=== PATIENT | male | born 1935 | race Asian ===

== ENCOUNTER 2020-07-06 15:55 | Outpatient (CLI) | payer MEDICARE, OTHER | END 2020-07-06 15:56 | disposition critical access hospital (66) | LOC: EMS 15:55 | PROVIDERS: ATTEND Surgery | DX: R41.82 Altered mental status, unspecified (principal); R53.1 Weakness | CPT/HCPCS: A0425; A0427 ==

== ENCOUNTER 2020-07-06 16:28 | Emergency (ER) | payer MEDICARE, OTHER ==
[2020-07-06] MEDS ORDERED: IOVERSOL 320 100 ML VIAL IVP ONE ×3 (16:29→17:35)
--- NOTE | 2020-07-06 16:34 | ED Physician Documentation ---
PD HPI FOCAL NEURO - Stated complaint Stated Complaint: POSS STROKE - History obtained from History obtained from: Patient, Family, EMS - History of Present Illness Timing - onset: Enter time (7pm), Last night Timing - duration: Days (1) Timing - details: Abrupt onset, Still present Severity of deficit: Severe Weakness: Arm, Right Numbness: No: Face, Arm Associated symptoms: No: Headache, Nausea / vomiting, Seizure, Syncope, Fall, Head injury, Chest pain, Neck pain, Back pain, Fever Contributing factors: negative: Anticoagulated Baseline status: positive: A&OX3, ambulatory, indep Similar symptoms before: Has not had sx before Recently seen: Not recently seen - Additional information Additional information: Previously well 84-year-old male was last known normal at 7 PM last night and his noted he at that time had some difficulty with his speech and confusion. This persisted this morning when the patient awoke at 10 AM. He did not talk much as usual but went through his morning routine dressed himself ect. She noted he was more confused this afternoon and she has called the ambulance. She has noticed his breathing being funny today and she thinks he has not had much to drink for the past 2 days. She does recall that he was his usual talkative self 3 days ago when they were travelling. He has some trouble with breathing on a usual base but this she has not experienced. He seems to be gasping for breath. The patient is not able to cooperate with exam or history. He is using all ext and he was walking without trouble today. Review of Systems Unable to obtain: AMS, Confused, Other PD PAST MEDICAL HISTORY - Present Medications Home Medications: Ambulatory Orders Medication Instructions Recorded Confirmed Fluticasone/Salmeterol [Advair 07/06/20 250-50 Diskus] Tiotropium [place] [Spiriva] 07/06/20 - Allergies Allergies/Adverse Reactions: Allergies Allergy/AdvReac Type Severity Reaction Status Date / Time iodine Allergy Unknown Verified 07/06/20 16:56 PD ED PE NORMAL - Vitals Vital signs reviewed: Yes (hypertensive ) - General General: No acute distress, Well developed/nourished, Other (gasping for breath without audible wheeze. Confused and not responding appropriately) - HEENT HEENT: Atraumatic, PERRL, EOMI - Neck Neck: Supple, no meningeal sign, No bony TTP - Cardiac Cardiac: RRR, No murmur - Respiratory Respiratory: Clear bilaterally, Other (gasping for breath) - Abdomen Abdomen: Soft, Other (pain is elicited to the left side with palpation without garding. ) - Back Back: No CVA TTP, No spinal TTP - Derm Derm: Normal color, Warm and dry, No rash - Extremities Extremities: No deformity, No edema, No calf tenderness / cord - Neuro Eye Opening: Spontaneous Motor: Localizes to Pain Verbal: Inappropriate GCS Score: 12 - Psych Psych: Normal affect, Other (mood is happy with laughing ) NIHSS - Time Time: 17:20 - Level of Consciousness Level of consciousness: (0) Alert, Keenly responsive LOC Questions: (2) Answers neither correct LOC Commands: (2)Performs none - Gaze Best Gaze: (0) Normal - Visual Visual: (0) No loss - Facial Palsy Facial Palsy: (0) Normal, symmetrical movement - Motor Arms (both separate) Motor Arm (right): (0) No drift Motor Arm (left): (0) No drift - Motor Legs (both separate) Motor Leg (right): (0) No drift Motor Leg (left): (0) No drift - Limb Ataxia Limb Ataxia: (0) Absent - Sensory Sensory: (0) Normal - Best Language Best Language: (2) Severe aphasia - Dysarthria Dysarthria: (1) Sfrt-ik-avctrehv dysarthria - Extinction and Inattention (formally neg Extinction and inattention: (2) Profound jay-inattention or extinction to more than one modality - Total Score/Results Total Score/Result: 9 Results - Vitals Vitals: Vital Signs - 24 hr 07/06/20 07/06/20 07/06/20 16:48 17:02 17:04 Temperature 36.6 C 36.6 C Heart Rate 76 76 Respiratory 33 H 22 Rate Blood Pressure 161/80 H 161/80 H O2 Saturation 100 100 07/06/20 07/06/20 07/06/20 17:39 18:00 18:37 Temperature Heart Rate 70 78 74 Respiratory 27 H 24 23 Rate Blood Pressure 194/90 H 190/80 H 174/129 H O2 Saturation 100 100 98 07/06/20 07/06/20 07/06/20 19:30 20:21 21:20 Temperature Heart Rate 81 86 95 Respiratory 20 22 23 Rate Blood Pressure 186/117 H 193/75 H 157/90 H O2 Saturation 100 99 100 07/06/20 07/06/20 07/06/20 21:30 22:10 23:14 Temperature Heart Rate 84 84 85 Respiratory 17 17 20 Rate Blood Pressure 163/78 H 153/77 H 154/65 H O2 Saturation 97 97 95 07/06/20 23:54 Temperature 36.9 C Heart Rate 82 Respiratory 14 Rate Blood Pressure 146/57 H O2 Saturation 92 Oxygen O2 Source Room air - EKG (time done) 1653 Rate: Rate (enter#) (75) Intervals: RBBB Compare to prior EKG: Old EKG unavailable Computer interpretation: Agree with computer - Labs Labs: Laboratory Tests 07/06/20 07/06/20 07/06/20 16:50 16:50 16:50 WBC 7.9 RBC 5.01 Hgb 14.9 Hct 45.1 MCV 90.0 MCH 29.7 MCHC 33.0 RDW 12.7 Plt Count 205 MPV 9.9 Neut # (Auto) 4.9 Lymph # (Auto) 2.0 [place] # (Auto) 0.8 Eos # (Auto) 0.1 Baso # (Auto) 0.0 Absolute Nucleated RBC 0.00 Nucleated RBC % 0.0 PT 13.3 H INR 1.2 Sodium 137 Potassium 3.6 Chloride 104 Carbon Dioxide 22 Anion Gap 11.0 BUN 18 Creatinine 0.9 Estimated GFR (MDRD) 80 L Glucose 102 H Calcium 9.0 Total Bilirubin 0.9 AST 21 ALT 26 Alkaline Phosphatase 87 Total Protein 6.9 Albumin 3.8 Globulin 3.1 Albumin/Globulin Ratio 1.2 Lipase 26 Urine Color Urine Clarity Urine pH Ur Specific [place] Urine Protein Urine Glucose (UA) Urine Ketones Urine Occult Blood Urine Nitrite Urine Bilirubin Urine Urobilinogen Ur Leukocyte Esterase Ur Microscopic Review Urine Culture Comments 07/06/20 18:52 WBC RBC Hgb Hct MCV MCH MCHC RDW Plt Count MPV Neut # (Auto) Lymph # (Auto) [place] # (Auto) Eos # (Auto) Baso # (Auto) Absolute Nucleated RBC Nucleated RBC % PT INR Sodium Potassium Chloride Carbon Dioxide Anion Gap BUN Creatinine Estimated GFR (MDRD) Glucose Calcium Total Bilirubin AST ALT Alkaline Phosphatase Total Protein Albumin Globulin Albumin/Globulin Ratio Lipase Urine Color YELLOW Urine Clarity CLEAR Urine pH 8.0 H Ur Specific [place] 1.010 Urine Protein NEGATIVE Urine Glucose (UA) NEGATIVE Urine Ketones 15 H Urine Occult Blood TRACE-INTA Urine Nitrite NEGATIVE Urine Bilirubin NEGATIVE Urine Urobilinogen 0.2 (NORMAL) Ur Leukocyte Esterase NEGATIVE Ur Microscopic Review NOT INDICATED Urine Culture Comments NOT INDICATED - Rads (name of study) CTA head Radiology: Prelim report reviewed (Impression: No significant intracranial abnormality is seen. No intracranial hemorrhage is seen. No hemodynamically significant stenosis is detected. Would be helpful for clinical management decision-making, please consider a dedicated brain MRI for further evaluation (assuming there is no contra), EMP read indepedently, See rad report CTA neck Radiology: Prelim report reviewed (Impression there is high-grade stenosis involving the left proximal internal carotid artery, approximately 90% there is approximately 70% stenosis seen involving the right proximal internal carotid artery. Generalized atherosclerotic calcification and irregularity can be seen involving intracranial), EMP read indepedently (internal carotid arteries with 40 to 50% narrowing seen on each side. There is focal atherosclerotic calcifica tion seen involving the right V4 segment with approximately 40% narrowing.), See rad report CT ab/pel w Radiology: Prelim report reviewed (Impression: 1. No evidence of acute abdominal process. Aortic atherosclerosis. Lumbar degenerative change with severe canal stenosis at L4-L5 mild chronic T12 compression. Small hiatal hernia. Left inguinal hernia containing fat.), EMP read indepedently, See rad report chest Radiology: Prelim report reviewed (Impression: No evidence of acute pulmonary process.), EMP read indepedently, See rad report Procedures - IVC sono (time) 1720 Bedside IVC sono: IVC measures (cm) (1.14), IVC collapsed c insp (cm) (com plete), Dehydration (est 1+ liter deficit) PD MEDICAL DECISION MAKING - ED course Complexity details: reviewed results, re-evaluated patient, considered differential, d/w patient ED course: 84 y/o male with acute aphasia and confusion is not able to cooperate with history or exam. His presentation is concerning for stroke and his last normal was yesterday. The obvious part of the stroke is the aphasia. There is not obvious unilateral weakness or incoordination. He is not able to cooperate with exam for details but is outside the window for aggressive measures. We were able to obtain CTA of the head and neck but not the MRI as his breathing was a limiting factor with motion artifact. Chest x-ray is without evidence of acute infiltrate or reason for the patient's abnormal breathing. I suspect his breathing may be a central process. During examination the patient did indicate pain in the left side of his abdomen and a CTA of the abdomen pelvis is obtained without findings for acute pain. CTA of the carotid arteries shows 90% occlusion on the right 70% occlusion on the left. The patient is found to be dehydrated on interrogation the inferior vena cava and intravenous saline is begun. I discussed with the patient's potential treatment of carotid artery stenosis requiring carotid endarterectomy and we discussed whether the patient would want to have this done. I did indicate to the that this would not change his difficulty with speech or his difficulty with breathing but might prevent a future stroke. She feels that he might not want to do this but she would like the opinion of the surgeon. The vascular surgeon Dr. Robin at [facility] in [place] is consulted in the case and indicates that it would be a reasonable thing for this patient to have an endarterectomy done and they do not have beds at [facility]. He recommends transfer the patient tomorrow when a bed becomes available and they would perform further imaging consult neurology and potentially operate. Dr. Palmer is consulted in the case and requests that we call vascular surgery. Dr. Barragan is consulted in the case after contacting vascular surgery with the plan that we would admit the patient to the hospital here to await the bed to become available tomorrow. He requested we call another vascular surgeon at [facility]. At shift change care of the patient is turned over to Dr. Christianson Departure - Departure Disposition: 02 Transfer Acute Care Hosp Clinical Impression: Dehydration Cerebrovascular accident (CVA) Qualifiers: CVA mechanism: unspecified Qualified Code(s): I63.9 - Cerebral infarction, unspecified Condition: Serious Discharge Date/Time: 07/07/20 00:22
[2020-07-06 16:55] LABS: BASOPHILS % (AUTO) 0.5 %; EOSINOPHILS # (AUTO) 0.1 10^3/uL (0.0-0.7); EOSINOPHILS % (AUTO) 1.3 %; HGB - HEMOGLOBIN 14.9 g/dL (14.0-18.0); LYMPHOCYTES % (AUTO) 25.6 %; MEAN CORPUSCULAR HEMOGLOBIN 29.7 pg (27.0-31.0); MEAN PLATELET VOLUME 9.9 fL (7.4-11.4); MONOCYTES # (AUTO) 0.8 10^3/uL (0.0-1.0); MONOCYTES % (AUTO) 10.2 %; NEUTROPHILS # (AUTO) 4.9 10^3/uL (1.5-6.6); NEUTROPHILS % (AUTO) 61.9 %; PLT - PLATELET COUNT 205 10^3/uL (130-450); RED BLOOD COUNT 5.01 10^6/uL (4.70-6.10); RED CELL DISTRIBUTION WIDTH 12.7 % (12.0-15.0); WHITE BLOOD COUNT 7.9 x10^3/uL (4.8-10.8)
--- NOTE | 2020-07-06 16:58 | CT Report ---
PROCEDURE: ANGIO HEAD W/WO INDICATIONS: speech diff, right sided weakness CONTRAST: IV CONTRAST: Optiray 320 ml: 80 PO CONTRAST: *NO PO CONTRAST TECHNIQUE: Precontrast 4.5 mm thick angled axial sections acquired from the foramen magnum to the vertex. Afte r the administration of intravenous contrast, 1 mm thick sections acquired through the [place] of [place] is. Postcontrast 4.5 mm thick sections then re-acquired from the foramen magnum to the vertex. 3-di mensional jjrxyek-hlrnoicgn-zprwipbfrx (MIP) and/or volume rendering reformats were acquired of the c entral intracranial vasculature. For radiation dose reduction, the following was used: automated ex posure control, adjustment of mA and/or kV according to patient size. COMPARISON: Correlation is made with the overlapping portions of the neck CT angiogram 07/06/2020. FINDINGS: Image quality: Excellent. Anterior circulation: Episodic calcification and irregularity can be seen involving the intracranial internal carotid arteries, with 40-50% stenosis seen on each side. The flow within the paired anterio r cerebral arteries is normal and symmetric. The flow within the middle cerebral arteries is normal and symmetric. The anterior communicating artery is seen. No aneurysms are seen. Posterior circulation: Visualized portions of the vertebral arteries demonstrate normal caliber, and join to form a normal appearing basilar artery. Flow within the posterior cerebral arteries is norm al and symmetric. No aneurysms are seen. CSF spaces: Ventricles are normal in size and shape. Basal cisterns are patent. No extra-axial flu id collections. Brain: No midline shift. No intracranial bleeds or masses. Shirley-white matter interface appears int act. Skull and face: Calvarium and facial bones appear intact, without suspicious lesions. Sinuses: Visualized sinuses and mastoids are clear. IMPRESSION: No significant intracranial abnormality is seen. No intracranial hemorrhage is seen. No hemodynamically significant stenosis is detected. If it would be helpful for clinical management decision making, please consider a dedicated brain MRI for further evaluation (assuming that there is no contraindication). Reviewed by: Juan Diego Cook MD on 07/06/2020 3:57 PM FÁTIMA Approved by: Juan Diego Cook MD on 07/06/2020 3:57 PM AKKELL Station ID: [id number]
[2020-07-06 17:02] LABS: INR 1.2 (0.8-1.2); PT - PROTHROMBIN TIME 13.3 secs (9.9-12.6)
--- NOTE | 2020-07-06 17:03 | CT Report ---
PROCEDURE: ANGIO NECK W INDICATIONS: right sided deficit, speech diff CONTRAST: IV CONTRAST: Optiray 320 ml: 80 PO CONTRAST: *NO PO CONTRAST TECHNIQUE: After the administration of intravenous contrast, 1.5 mm axial sections acquired from the aortic arch to the [place] of Street. Coronal 3-D maximum intensity projection (MIP) and/or volume rendering ref ormats were then performed. For radiation dose reduction, the following was used: automated exposur e control, adjustment of mA and/or kV according to patient size. COMPARISON: Correlation is made with the overlapping portions of the head CT angiogram 07/06/2020 FINDINGS: Image quality: Motion artifact is noted. Carotid system: The great vessels demonstrate a conventional anatomy as they arise from the aortic a rch. The origins of the common carotid arteries appear patent. The common carotid arteries demonstr ate normal calibers. There is 40-50% narrowing seen involving the left mid to distal common carotid artery. The bifurcation regions demonstrate prominent atherosclerotic irregularity and calcification. There is approximate 90% stenosis seen involving the left proximal internal carotid artery. On the r ight, there is approximate 70% stenosis seen involving the bifurcation region. The more distal validation intern al carotid arteries demonstrate normal course and caliber. Posterior circulation: The origins of the vertebral arteries appear patent. There is focal atheroscl erotic calcification seen involving the right and before segment, as on series 2 image 226, with appr oximately 40% narrowing. No additional vertebral artery stenosis can be seen. They join to form a nor mal appearing basilar artery. Soft tissues: Visualized neck soft tissues demonstrate no suspicious abnormalities. The thyroid gla nd is normal in size. At the lung apices, centrilobular emphysematous changes are seen. Bones: No suspicious bony lesions. Visualized cervical spine appears normally aligned. Prominent degenerative changes are seen. At C3-C4, there is severe disc space narrowing with associated promine nt endplate irregularity and sclerosis. Bridging anterior osteophytes are seen at this level. Mild r etrolisthesis is seen at this level. There is moderate to severe disc space narrowing seen at C5-C6 a nd C6-C7. IMPRESSION: There is high-grade stenosis seen involving the left proximal internal carotid artery, approximately 90%. There is approximately 70% stenosis seen involving the right proximal internal carotid artery. Generalized atherosclerotic calcification and irregularity can be seen involving intracranial interna l carotid arteries, with 40-50% narrowing seen on each side. There is focal atherosclerotic calcification seen involving the right V4 segment, with approximate 40 % narrowing. Incidental note is made of: Prominent cervical spine degenerative changes are seen Pulmonary emphysematous changes. The estimate of stenosis included in the report of the imaging study was calculated using the NASCET method Reviewed by: Juan Diego Cook MD on 07/06/2020 4:02 PM FÁTIMA Approved by: Juan Diego Cook MD on 07/06/2020 4:02 PM AKKELL Station ID: [id number]
[2020-07-06 17:09] LABS: ALBUMIN 3.8 g/dL (3.2-5.5); ALBUMIN/GLOBULIN RATIO 1.2 (1.0-2.2); BILIRUBIN,TOTAL 0.9 mg/dL (0.2-1.0); CREATININE 0.9 mg/dL (0.6-1.2); TOTAL PROTEIN 6.9 g/dL (6.7-8.2)
[2020-07-06] MEDS: IOVERSOL 320 100 ML VIAL IVP ONE ×2 (17:14→18:13)
[2020-07-06] MEDS ORDERED: SODIUM CHLORIDE 0.9% 1,000 ML IV STA (17:22)
--- NOTE | 2020-07-06 18:32 | XRAY Report ---
PROCEDURE: Chest 1 View X-Ray INDICATIONS: dyspnea TECHNIQUE: One view of the chest was acquired. COMPARISON: None FINDINGS: Surgical changes and devices: None. Lungs and pleura: No pleural effusions or pneumothorax. Lungs are clear. Mediastinum: Mediastinal contours appear normal. Heart size is normal. Bones and chest wall: No suspicious bony lesions. Overlying soft tissues appear unremarkable. IMPRESSION: No evidence acute pulmonary process. Reviewed by: Rell Thomason MD on 07/06/2020 6:31 PM PDT Approved by: Rell Thomason MD on 07/06/2020 6:31 PM PDT Station ID: [id number]
--- NOTE | 2020-07-06 18:37 | CT Report ---
PROCEDURE: Abdomen/Pelvis W INDICATIONS: diverticulitis suspected CONTRAST: IV CONTRAST: Optiray 320 ml: 90 PO CONTRAST: *NO PO CONTRAST TECHNIQUE: After the administration of intravenous contrast, 5 mm thick sections acquired from the diaphragms to the symphysis. 5 mm thick coronal and sagittal reformats were acquired. For radiation dose reducti on, the following was used: automated exposure control, adjustment of mA and/or kV according to sigifredo ent size. COMPARISON: None. FINDINGS: Image quality: Excellent. ABDOMEN: Lung bases: Lung bases are clear. Heart size is normal. Solid organs: Liver and spleen are normal in size and enhancement. Gallbladder is unremarkable Kendrick iary system is non dilated. Pancreas enhances normally. No adrenal nodules. Kidneys demonstrate no rmal size and enhancement, without hydronephrosis. Peritoneum and bowel: Bowel loops demonstrate normal wall thickness and caliber. Previous right col onic surgery. No free fluid or air. Small hiatal hernia. No abscess cavity Nodes and vessels: No retroperitoneal or mesenteric adenopathy by size criteria. Aorta and inferior vena cava are normal in size. Atherosclerotic calcifications in the aorta. Miscellaneous: No ventral hernias. PELVIS: Genitourinary: Bladder wall thickness is normal. Miscellaneous: Left inguinal hernia containing fat. Bones: No suspicious bony lesions. No acute vertebral body compression fractures. Old T12 compressi on. Lumbar degenerative change. Severe canal stenosis at L4-L5. IMPRESSION: 1. No evidence of acute abdominal process. 2. Aortic atherosclerosis. 3. Lumbar degenerative change with severe canal stenosis at L4-L5. 4. Mild chronic T12 compression. 5. Small hiatal hernia. 6. Left inguinal hernia containing fat. Reviewed by: Rell Thomason MD on 07/06/2020 6:35 PM PDT Approved by: Rell Thomason MD on 07/06/2020 6:35 PM PDT Station ID: [id number]
[2020-07-06 19:04] LABS: BILIRUBIN,URINE NEGATIVE (NEGATIVE); GLUCOSE, URINE (UA) NEGATIVE (NEGATIVE); KETONES,URINE (UA) 15 mg/dL (NEGATIVE); LEUKOCYTE ESTERASE, URINE NEGATIVE (NEGATIVE); NITRITE,URINE NEGATIVE (NEGATIVE); OCCULT BLOOD,URINE TRACE-INTA (NEGATIVE); PROTEIN,URINE NEGATIVE (NEGATIVE); UROBILINOGEN,URINE 0.2 (NORMAL) E.U./dL (NORMAL)
[2020-07-06 19:06] LABS: CLARITY,URINE CLEAR (CLEAR)
[2020-07-06] MEDS ORDERED: ASPIRIN CHEW 81 MG TABLET PO STA (19:43)
--- NOTE | 2020-07-06 21:17 | ED Physician Documentation ---
ED Addendum - Addendum Addendum: 07/06/20 21:14 Received sign-out from Dr. Pathak at end of his shift, patient is pending disposition. I discussed the case with Dr. Cheung (vascular surgeon) at [facility], agrees patient is appropriate for transfer, recommends I d/w their hospitalist for transfer. D/W Dr. Blanchard (hospitalist) at [facility], accepts transfer. Per transfer center, bed anticipated to be available at 11:00 PM. Patient in NAD on my exam, awake, alert, with obvious expressive aphasia, diffic ulty with word finding, some words are incomplete or neologisms; he appears frustrated at times with the inability to verbalize his thoughts. He follows commands quickly and appropriately and evidences no lateralizing signs on my exam.
[2020-07-06 23:56] VITALS: BP 146/57
== END 2020-07-07 00:22 | disposition short-term general hospital (02) ==
LOC: ED 16:28
DX: I63.9 Cerebral infarction, unspecified (principal); R29.709 NIHSS score 9; R47.01 Aphasia; R06.02 Shortness of breath; I65.23 Occlusion and stenosis of bilateral carotid arteries; I45.10 Unspecified right bundle-branch block; R03.0 Elevated blood-pressure reading, without diagnosis of hypertension; R10.9 Unspecified abdominal pain; E86.0 Dehydration
CPT/HCPCS: 36415; 51701; 70496; 70498; 71045; 74177; 80053; 81003; 83690; 85025; 85610; 93005; 96360; 96361; 99285; A9270; Q9967; 81001; 87086

== ENCOUNTER 2020-07-07 00:21 | Outpatient (CLI) | payer MEDICARE | END 2020-07-07 00:22 | disposition short-term general hospital (02) | LOC: EMS 00:21 | PROVIDERS: ATTEND Surgery | DX: R53.1 Weakness (principal); R47.01 Aphasia; I65.23 Occlusion and stenosis of bilateral carotid arteries | CPT/HCPCS: A0425; A0426 ==

== ENCOUNTER 2020-09-22 12:43 | Emergency (ER) | payer MEDICARE ==
[2020-09-22] MEDS ORDERED: methylPREDNISolone SUCCINATE 125 MG/2 ML VIAL IVP STA (13:16)
[2020-09-22] MEDS ORDERED: IPRATROPIUM/ALBUTEROL 3 ML NEB INH STA (13:16)
--- NOTE | 2020-09-22 13:17 | ED Physician Documentation ---
PD HPI DYSPNEA - Stated complaint Stated Complaint: SOA - Chief complaint Chief Complaint: Resp - History obtained from History obtained from: Patient, Family - History of Present Illness Timing - onset: Yesterday (84-year-old gentleman with history of COPD has been sick since yesterday with mild dry cough, shortness of breath and wheezing. Denies chest pain or pedal edema. Quit smoking 30 years ago. Uses albuterol and Spiriva at baseline. Denies fevers.) Review of Systems Ten Systems: 10 systems reviewed and negative Constitutional: denies: Fever, Chills Cardiac: denies: Chest pain / pressure, Pedal edema, Calf pain Respiratory: reports: Dyspnea, Cough, Wheezing GI: denies: Abdominal Pain PD PAST MEDICAL HISTORY - Past Medical History Respiratory: COPD - Past Surgical History Past Surgical History: Yes - Present Medications Home Medications: Ambulatory Orders Medication Instructions Recorded Confirmed Fluticasone/Salmeterol [Advair 07/06/20 250-50 Diskus] Tiotropium [place] [Spiriva] 07/06/20 predniSONE [Deltasone] 20 mg PO [id number] #21 tab 09/22/20 - Allergies Allergies/Adverse Reactions: Allergies Allergy/AdvReac Type Severity Reaction Status Date / Time iodine Allergy Unknown Verified 09/22/20 12:58 - Social History Does the pt smoke?: No Smoking Status: Never smoker Does the pt drink ETOH?: No Does the pt have substance abuse?: No - Immunizations Immunizations are current?: Yes PD ED PE NORMAL - Vitals Vital signs reviewed: Yes - General General: Alert and oriented X 3, No acute distress - HEENT HEENT: PERRL, EOMI - Neck Neck: Supple, no meningeal sign, No bony TTP - Cardiac Cardiac: RRR, No murmur - Respiratory Respiratory: Other (Loosely wheezy throughout with moderate air motion, both inspiratory and expiratory wheezes, mildly labored. Speaking in full sentences though.) - Abdomen Abdomen: Non tender - Back Back: No spinal TTP - Derm Derm: Normal color, Warm and dry, No rash - Extremities Extremities: No edema, No calf tenderness / cord - Neuro Neuro: Alert and oriented X 3, Normal speech Results - Vitals Vitals: Vital Signs - 24 hr 09/22/20 09/22/20 09/22/20 12:52 13:19 13:34 Temperature 36.8 C Heart Rate 91 89 77 Respiratory 24 22 24 Rate Blood Pressure 122/53 L 118/60 O2 Saturation 97 99 09/22/20 09/22/20 13:54 14:29 Temperature Heart Rate 77 72 Respiratory 18 22 Rate Blood Pressure 130/69 O2 Saturation 99 Oxygen O2 Source Room air - Labs Labs: Laboratory Tests 09/22/20 09/22/20 09/22/20 13:20 13:20 13:20 WBC 8.1 RBC 4.55 L Hgb 13.5 L Hct 41.7 L MCV 91.6 MCH 29.7 MCHC 32.4 RDW 13.0 Plt Count 234 MPV 10.6 Neut # (Auto) 4.2 Lymph # (Auto) 2.0 [place] # (Auto) 0.9 Eos # (Auto) 1.0 H Baso # (Auto) 0.1 Absolute Nucleated RBC 0.00 Nucleated RBC % 0.0 Sodium 140 Potassium 4.1 Chloride 105 Carbon Dioxide 25 Anion Gap 10.0 BUN 21 H Creatinine 1.0 Estimated GFR (MDRD) 71 L Glucose 105 H Calcium 9.2 B-Natriuretic Peptide 57 PD MEDICAL DECISION MAKING - ED course ED course: 84-year-old gentleman with apparent COPD exacerbation. No evidence of alternative diagnosis. Chest x-ray interpreted contemporaneously by me is without acute process. No evidence of CHF. Feeling better after a couple of nebs here. Also received IV steroids. I do not see any indication for antibiotics given the lack of productive cough or white count or fever or pneumonia. Departure - Departure Disposition: 01 Home, Self Care Clinical Impression: Moderate COPD (chronic obstructive pulmonary disease) Condition: Good Record reviewed to determine appropriate education?: Yes Instructions: ED COPD Flare Prescriptions: predniSONE [Deltasone] 20 mg PO [id number] #21 tab Comments: No evidence of active heart disease or heart failure today. Your chest x-ray is normal. Sounds like a simple flare of COPD. The steroid should help a lot. You can increase your use of your albuterol inhaler as needed while you are sick. Return if worsening.
[2020-09-22 13:49] LABS: BASOPHILS # (AUTO) 0.1 10^3/uL (0.0-0.1); BASOPHILS % (AUTO) 0.7 %; EOSINOPHILS % (AUTO) 11.7 %; HGB - HEMOGLOBIN 13.5 g/dL (14.0-18.0); LYMPHOCYTES % (AUTO) 24.9 %; MEAN CORPUSCULAR HEMOGLOBIN 29.7 pg (27.0-31.0); MEAN CORPUSCULAR HGB CONC 32.4 g/dL (32.0-36.0); MEAN CORPUSCULAR VOLUME 91.6 fL (80.0-94.0); MEAN PLATELET VOLUME 10.6 fL (7.4-11.4); MONOCYTES # (AUTO) 0.9 10^3/uL (0.0-1.0); MONOCYTES % (AUTO) 11.1 %; NEUTROPHILS # (AUTO) 4.2 10^3/uL (1.5-6.6); NEUTROPHILS % (AUTO) 51.2 %; PLT - PLATELET COUNT 234 10^3/uL (130-450); RED BLOOD COUNT 4.55 10^6/uL (4.70-6.10); WHITE BLOOD COUNT 8.1 x10^3/uL (4.8-10.8)
[2020-09-22 13:54] LABS: CALCIUM 9.2 mg/dL (8.5-10.3)
[2020-09-22] MEDS ORDERED: LEVALBUTEROL 1.25 MG/3 ML NEB INH STA (14:15)
--- NOTE | 2020-09-22 15:05 | XRAY Report ---
PROCEDURE: Chest 1 View X-Ray INDICATIONS: Chest Pain TECHNIQUE: One view of the chest was acquired. COMPARISON: FINDINGS: Surgical changes and devices: None. Lungs and pleura: No pleural effusions or pneumothorax. Lungs are clear. Mediastinum: Mediastinal contours appear normal. Heart size is normal. Bones and chest wall: No suspicious bony lesions. Overlying soft tissues appear unremarkable. IMPRESSION: No acute cardiopulmonary disease process. Reviewed by: Miranda Santiago MD, PhD on 09/22/2020 3:04 PM [facility] Approved by: Miranda Santiago MD, PhD on 09/22/2020 3:04 PM [facility] Station ID: [id number]
[2020-09-22 15:18] VITALS: BP 127/73
== END 2020-09-22 15:22 | disposition home or self-care (01) ==
LOC: ED 12:43
DX: J44.1 Chronic obstructive pulmonary disease with (acute) exacerbation (principal); Z87.891 Personal history of nicotine dependence
CPT/HCPCS: 36415; 71045; 80048; 83880; 85025; 85379; 94640; 96374; 99284

== ENCOUNTER 2021-06-29 12:18 | Outpatient (CLI) | payer MEDICARE | END 2021-06-29 12:19 | disposition critical access hospital (66) | LOC: EMS 12:18 | DX: R40.0 Somnolence (principal); R53.83 Other fatigue | CPT/HCPCS: A0425; A0427 ==

== ENCOUNTER 2021-06-29 12:53 | Emergency (ER) | payer MEDICARE ==
--- NOTE | 2021-06-29 13:00 | ED Physician Documentation ---
PD HPI ALTERED MENTAL STATUS - Stated complaint Stated Complaint: DECREASED LOC - History obtained from History obtained from: Patient, EMS - Additional information Additional information: 85-year-old gentleman brought in by ambulance for excessive somnolence. Paramedics state the family called because he was hard to arouse and paramedics corroborates that it required painful stimulus to arouse him. At this point he seems back to normal and the patient states that he was just trying to take a nap and was unsuccessful. He has no specific complaints. There is a sick family member at home but he denies any illness. No fevers, body aches, cough, shortness of breath, chest pain, or urinary complaints. Review of Systems Ten Systems: 10 systems reviewed and negative Constitutional: denies: Fever, Chills Nose: denies: Rhinorrhea / runny nose, Congestion Cardiac: denies: Chest pain / pressure, Palpitations Respiratory: denies: Dyspnea, Cough PD PAST MEDICAL HISTORY - Past Medical History Respiratory: COPD Neuro: CVA - Past Surgical History Past Surgical History: Yes General: Colonoscopy - Present Medications Home Medications: Ambulatory Orders Medication Instructions Recorded Confirmed Fluticasone/Salmeterol [Advair 07/06/20 250-50 Diskus] Tiotropium [place] [Spiriva] 07/06/20 predniSONE [Deltasone] 20 mg PO [id number] #21 tab 09/22/20 - Allergies Allergies/Adverse Reactions: Allergies Allergy/AdvReac Type Severity Reaction Status Date / Time iodine Allergy Unknown Verified 09/22/20 12:58 - Social History Does the pt smoke?: No Smoking Status: Never smoker Does the pt drink ETOH?: No Does the pt have substance abuse?: No - Immunizations Immunizations are current?: Yes - POLST Patient has POLST: No PD ED PE NORMAL - Vitals Vital signs reviewed: Yes - General General: Alert and oriented X 3 (Hard of hearing), No acute distress - HEENT HEENT: PERRL, EOMI - Neck Neck: Supple, no meningeal sign, No bony TTP - Cardiac Cardiac: RRR, No murmur - Respiratory Respiratory: No respiratory distress, Clear bilaterally - Abdomen Abdomen: Normal bowel sounds, Soft, Non tender - Back Back: No CVA TTP, No spinal TTP - Derm Derm: Normal color, Warm and dry - Extremities Extremities: No edema, No calf tenderness / cord - Neuro Neuro: Alert and oriented X 3, No motor deficit, No sensory deficit, Normal speech Eye Opening: Spontaneous Motor: Obeys Commands Verbal: Oriented GCS Score: 15 Results - Vitals Vitals: Vital Signs - 24 hr 06/29/21 06/29/21 06/29/21 13:00 14:00 15:11 Temperature 36.4 C L 36.7 C Heart Rate 67 82 60 Respiratory 14 15 15 Rate Blood Pressure 122/76 118/66 131/76 H O2 Saturation 100 97 97 Oxygen O2 Source Room air - EKG (time done) 1259 Rate: Rate (enter#) (63) Rhythm: NSR [place]: Normal Intervals: RBBB QRS: Normal Ischemia: Normal ST segments Compare to prior EKG: Unchanged from prior EKG (no chg since 07/06/20) Computer interpretation: Agree with computer - Labs Labs: Laboratory Tests 06/29/21 06/29/21 06/29/21 13:06 13:06 13:31 WBC 6.8 RBC 3.84 L Hgb 11.1 L Hct 35.1 L MCV 91.4 MCH 28.9 MCHC 31.6 L RDW 12.8 Plt Count 176 MPV 10.0 Neut # (Auto) 4.3 Lymph # (Auto) 1.3 L [place] # (Auto) 0.9 Eos # (Auto) 0.3 Baso # (Auto) 0.0 Absolute Nucleated RBC 0.00 Nucleated RBC % 0.0 Sodium 140 Potassium 4.0 Chloride 109 Carbon Dioxide 24 Anion Gap 7.0 BUN 23 H Creatinine 0.9 Estimated GFR (MDRD) 80 L Glucose 120 H Calcium 8.8 Total Bilirubin 0.5 AST 23 ALT 38 Alkaline Phosphatase 110 Total Protein 6.2 L Albumin 3.3 Globulin 2.9 Albumin/Globulin Ratio 1.1 Urine Opiates Screen NEGATIVE Ur Oxycodone Screen NEGATIVE Urine Methadone Screen NEGATIVE Ur Propoxyphene Screen NEGATIVE Ur Barbiturates Screen NEGATIVE Ur Tricyclics Screen NEGATIVE Ur Phencyclidine Scrn NEGATIVE Ur Amphetamine Screen NEGATIVE U Methamphetamines Scrn NEGATIVE U Benzodiazepines Scrn NEGATIVE Urine Cocaine Screen NEGATIVE U Cannabinoids Screen NEGATIVE Ethyl Alcohol < 5.0 PD MEDICAL DECISION MAKING - ED course ED course: 85-year-old gentleman with an episode of somnolence at home. No medication misadventures per the . He is now completely back to normal. He was arousable during all of these times, just with effort. Never lost pulses or became apneic. Departure - Departure Disposition: 01 Home, Self Care Clinical Impression: Altered mental status Qualifiers: Altered mental status type: transient alteration of awareness Qualified Code(s ): R40.4 - Transient alteration of awareness Condition: Good Record reviewed to determine appropriate education?: Yes Instructions: ED Altered Loc Comments: Call your doctor to arrange a follow-up appointment, make the next available appointment. In the interim, return anytime if worse or if new symptoms develop. Discharge Date/Time: 06/29/21 15:11
[2021-06-29 13:10] LABS: BASOPHILS % (AUTO) 0.6 %; EOSINOPHILS # (AUTO) 0.3 10^3/uL (0.0-0.7); EOSINOPHILS % (AUTO) 3.7 %; HCT - HEMATOCRIT 35.1 % (42.0-52.0); HGB - HEMOGLOBIN 11.1 g/dL (14.0-18.0); LYMPHOCYTES # (AUTO) 1.3 10^3/uL (1.5-3.5); LYMPHOCYTES % (AUTO) 19.4 %; MEAN CORPUSCULAR HEMOGLOBIN 28.9 pg (27.0-31.0); MEAN CORPUSCULAR HGB CONC 31.6 g/dL (32.0-36.0); MEAN CORPUSCULAR VOLUME 91.4 fL (80.0-94.0); MONOCYTES # (AUTO) 0.9 10^3/uL (0.0-1.0); MONOCYTES % (AUTO) 13.6 %; NEUTROPHILS # (AUTO) 4.3 10^3/uL (1.5-6.6); NEUTROPHILS % (AUTO) 62.6 %; PLT - PLATELET COUNT 176 10^3/uL (130-450); RED BLOOD COUNT 3.84 10^6/uL (4.70-6.10); RED CELL DISTRIBUTION WIDTH 12.8 % (12.0-15.0); WHITE BLOOD COUNT 6.8 x10^3/uL (4.8-10.8)
[2021-06-29 13:24] LABS: ALBUMIN 3.3 g/dL (3.2-5.5); ALBUMIN/GLOBULIN RATIO 1.1 (1.0-2.2); ALKALINE PHOSPHATASE 110 IU/L (42-121); ALT ALANINE AMINOTRANSFERASE 38 IU/L (10-60); AST ASPARTATE AMINOTRANSFERASE 23 IU/L (10-42); BILIRUBIN,TOTAL 0.5 mg/dL (0.2-1.0); BUN - BLOOD UREA NITROGEN 23 mg/dL (6-20); CALCIUM 8.8 mg/dL (8.5-10.3); CARBON DIOXIDE - CO2 24 mmol/L (21-32); CHLORIDE 109 mmol/L (101-111); CREATININE 0.9 mg/dL (0.6-1.2); ETOH - ETHANOL < 5.0 mg/dL; GFR - MDRD 80 (>89); GLUCOSE 120 mg/dL (70-100); SODIUM 140 mmol/L (135-145); TOTAL PROTEIN 6.2 g/dL (6.7-8.2)
[2021-06-29 13:49] LABS: MUDS CUTOFF CONCENTRATIONS CUTOFF CONC BELOW:
[2021-06-29 14:15] LABS: AMPHETAMINE SCREEN,URINE NEGATIVE (NEGATIVE); BARBITURATE SCREEN,UR NEGATIVE (NEGATIVE); BENZODIAZEPINES SCREEN, URINE NEGATIVE (NEGATIVE); COCAINE SCREEN URINE NEGATIVE (NEGATIVE); METHADONE SCREEN, URINE NEGATIVE (NEGATIVE); METHAMPHETAMINES SCREEN, URINE NEGATIVE (NEGATIVE); OPIATE SCREEN, URINE NEGATIVE (NEGATIVE); OXYCODONE SCREEN, URINE NEGATIVE (NEGATIVE); PROPOXYPHENE SCREEN, URINE NEGATIVE (NEGATIVE); THC CANNABINOID SCREEN, URINE NEGATIVE (NEGATIVE); TRICYCLIC ANTIDEPRESSANT,URINE NEGATIVE (NEGATIVE)
[2021-06-29 15:12] VITALS: BP 131/76
== END 2021-06-29 15:11 | disposition home or self-care (01) ==
LOC: EDUNIT# → EDSEX → ED 12:53
DX: R40.4 Transient alteration of awareness (principal); J44.9 Chronic obstructive pulmonary disease, unspecified; Z86.73 Personal history of transient ischemic attack (TIA), and cerebral infarction without residual deficits; Z79.52 Long term (current) use of systemic steroids
CPT/HCPCS: 36415; 80053; 80306; 85025; 93005; 99283; G0480; 80320

== ENCOUNTER 2021-07-09 15:39 | Outpatient (CLI) | payer MEDICARE | END 2021-07-09 15:40 | disposition home or self-care (01) | LOC: COV 15:39 | PROVIDERS: ATTEND Family Medicine | DX: U07.1 COVID-19 (principal) ==

== ENCOUNTER 2023-09-02 11:50 | Outpatient (CLI) | payer OTHER | END 2023-09-02 11:51 | disposition short-term general hospital (02) | LOC: EMS 11:50 | DX: I44.2 Atrioventricular block, complete (principal); R41.82 Altered mental status, unspecified | CPT/HCPCS: A0425; A0433 ==